=== PATIENT | female | born 1990 | race Two or more races ===

== ENCOUNTER 2022-08-19 13:20 | Emergency (ER) | payer OTHER ==
[~2022-08-19] VITALS: Ht 147.3 cm; Wt 78.0 kg
[2022-08-19] MEDS ORDERED: AZITHROMYCIN250 MG PO (21:57)
== END 2022-08-19 22:09 | disposition home or self-care (01) ==
LOC: ER 13:20
DX: O26.892 Other specified pregnancy related conditions, second trimester (principal); Z3A.14 14 weeks gestation of pregnancy; Z37.2 Twins, both liveborn; S39.92XA Unspecified injury of lower back, initial encounter; V49.9XXA Car occupant (driver) (passenger) injured in unspecified traffic accident, initial encounter; Y93.9 Activity, unspecified; Y92.413 State road as the place of occurrence of the external cause; N64.52 Nipple discharge

== ENCOUNTER 2022-09-23 18:32 | Outpatient (CLI) | payer OTHER ==
[~2022-09-23 18:32] MED LIST: AZITHROMYCIN250 MG PO
== END 2022-09-23 19:47 | disposition home or self-care (01) ==
LOC: NST 18:32
PROVIDERS: ATTEND Obstetrics & Gynecology Maternal & Fetal Medicine
DX: Z34.82 Encounter for supervision of other normal pregnancy, second trimester (principal)

== ENCOUNTER 2022-10-13 12:11 | Inpatient (IN) | payer OTHER ==
[~2022-10-13] VITALS: Ht 147.3 cm; Wt 80.3 kg
[2022-10-21] MEDS ORDERED: Procardia Xl 30MG TA PO (07:47)
[2022-10-21] MEDS ORDERED: INTEGRA F CAPS1 EACH PO (07:48)
== END 2022-10-21 11:04 | disposition home or self-care (01) | DRG 819 ==
LOC: LDR 12:11 → OB/GYN 10-17 10:41
PROVIDERS: ADMIT Obstetrics & Gynecology Maternal & Fetal Medicine; ATTEND Obstetrics & Gynecology Maternal & Fetal Medicine
PROC: BU4CZZZ Ultrasonography of Uterus and Ovaries (ICD-10-PCS; 2022-10-13)
PROC: 4A1HXCZ Monitoring of Products of Conception, Cardiac Rate, External Approach (ICD-10-PCS; 2022-10-13)
PROC: 0UVC7ZZ Restriction of Cervix, Via Natural or Artificial Opening (ICD-10-PCS; principal; 2022-10-16 11:00)
PROC: BU4CZZZ Ultrasonography of Uterus and Ovaries (ICD-10-PCS; 2022-10-19)
DX: O34.32 Maternal care for cervical incompetence, second trimester (principal); O30.092 Twin pregnancy, unable to determine number of placenta and number of amniotic sacs, second trimester; Z3A.25 25 weeks gestation of pregnancy; Z20.822 Contact with and (suspected) exposure to COVID-19

== ENCOUNTER 2022-11-12 10:44 | Outpatient (CLI) | payer OTHER ==
[~2022-11-12 10:44] MED LIST changes: +INTEGRA F CAPS1 EACH PO; +Procardia Xl 30MG TA PO
== END 2022-11-12 12:34 | disposition home or self-care (01) ==
LOC: NST 10:44
PROVIDERS: ATTEND Obstetrics & Gynecology Maternal & Fetal Medicine
DX: Z34.83 Encounter for supervision of other normal pregnancy, third trimester (principal)

== ENCOUNTER 2022-11-20 12:29 | Outpatient (CLI) | payer OTHER | END 2022-11-20 13:24 | disposition home or self-care (01) | LOC: NST 12:29 | PROVIDERS: ATTEND Obstetrics & Gynecology Maternal & Fetal Medicine | DX: Z34.83 Encounter for supervision of other normal pregnancy, third trimester (principal) ==

== ENCOUNTER 2022-12-04 01:43 | Outpatient (CLI) | payer OTHER ==
[2022-12-04] MEDS ORDERED: PRENATAL CAPLE1 EAC1 PO (01:57)
== END 2022-12-04 11:10 | disposition home or self-care (01) ==
LOC: OBS/DEL 01:43
PROVIDERS: ATTEND Obstetrics & Gynecology Gynecology
DX: O36.8132 Decreased fetal movements, third trimester, fetus 2 (principal); O30.043 Twin pregnancy, dichorionic/diamniotic, third trimester; Z3A.32 32 weeks gestation of pregnancy

== ENCOUNTER 2022-12-13 10:19 | Inpatient (IN) | payer OTHER ==
[~2022-12-13] VITALS: Ht 147.3 cm; Wt 80.7 kg
[~2022-12-13 10:19] MED LIST changes: +PRENATAL CAPLE1 EAC1 PO
[2022-12-13] MEDS ORDERED: NIFE60TA3 PO (10:34)
[2022-12-13] MEDS ORDERED: LOVENOX40 MG/0.4 SUBCUTANEO (10:34)
== END 2022-12-15 09:36 | disposition home or self-care (01) | DRG 833 ==
LOC: LDR 10:19
PROVIDERS: ADMIT Obstetrics & Gynecology; ATTEND Obstetrics & Gynecology
PROC: 4A1HXCZ Monitoring of Products of Conception, Cardiac Rate, External Approach (ICD-10-PCS; principal; 2022-12-13)
DX: O60.03 Preterm labor without delivery, third trimester (principal); O30.003 Twin pregnancy, unspecified number of placenta and unspecified number of amniotic sacs, third trimester; Z3A.33 33 weeks gestation of pregnancy

== ENCOUNTER 2022-12-24 14:28 | Outpatient (CLI) | payer OTHER ==
[~2022-12-24 14:28] MED LIST changes: +LOVENOX40 MG/0.4 SUBCUTANEO; +NIFE60TA3 PO
== END 2022-12-24 15:40 | disposition home or self-care (01) ==
LOC: NST 14:28
PROVIDERS: ATTEND Obstetrics & Gynecology Maternal & Fetal Medicine
DX: Z34.83 Encounter for supervision of other normal pregnancy, third trimester (principal)

== ENCOUNTER → 2022-12-31 | Outpatient (CLI) | payer OTHER | END | disposition home or self-care (01) | LOC: NST 14:01 | PROVIDERS: ATTEND Obstetrics & Gynecology Maternal & Fetal Medicine | DX: Z34.83 Encounter for supervision of other normal pregnancy, third trimester (principal) ==

== ENCOUNTER 2023-01-03 08:16 | Outpatient (CLI) | payer OTHER | END 2023-01-03 08:46 | disposition home or self-care (01) | LOC: NST 08:16 | PROVIDERS: ATTEND Obstetrics & Gynecology Maternal & Fetal Medicine | DX: Z34.83 Encounter for supervision of other normal pregnancy, third trimester (principal) ==

== ENCOUNTER 2023-01-05 12:12 | Inpatient (IN) | payer OTHER ==
[~2023-01-05] VITALS: Ht 147.3 cm; Wt 1.8 kg
== END 2023-01-09 13:16 | disposition home or self-care (01) | DRG 807 ==
LOC: LDR 01-07 05:29 → OB/GYN 01-07 14:32
PROVIDERS: ADMIT Obstetrics & Gynecology Maternal & Fetal Medicine; ATTEND Obstetrics & Gynecology Maternal & Fetal Medicine
PROC: 10E0XZZ Delivery of Products of Conception, External Approach (ICD-10-PCS; principal; 2023-01-07)
PROC: 4A1HXCZ Monitoring of Products of Conception, Cardiac Rate, External Approach (ICD-10-PCS; 2023-01-07)
DX: O30.033 Twin pregnancy, monochorionic/diamniotic, third trimester (principal); Z37.2 Twins, both liveborn; Z3A.37 37 weeks gestation of pregnancy; Z20.822 Contact with and (suspected) exposure to COVID-19